=== PATIENT | male | born 1985 | race Caucasian/White ===

== ENCOUNTER 2021-08-02 12:22 | Emergency (ER) | payer BC, MEDICAID ==
[~2021-08-02] VITALS: Ht 177.8 cm; Wt 64.4 kg
--- NOTE | 2021-08-02 12:30 | NUR ---
SEEN AND EXAMINED BY DR ARMSTRONG
--- NOTE | 2021-08-02 12:30 | NUR ---
TO ER BED 13, [id number] HOME, WAS FOUND IN THE BATHROOM W/ SELF INFLICTED ABRASIONS ON LFA, [employer] WILL PLACE ON 5150 FOR DTS, PER EMS PT CALLED 911 BUT DID NO SPECIFICALLY REPORT SI, JUST DEPRESSED, AAOX3, BREATHING EVEN AND NON LABORED, CONNECTED TO MONITOR
[2021-08-02] MEDS ORDERED: TDAP [DIPH/PERTUSSIS/TET] 0.5 ML VIAL IM ONE ×2 (12:36→13:00)
--- NOTE | 2021-08-02 12:38 | NUR ---
APPLICATIONS SYSTEMS ANALYST AT BEDSIDE
--- NOTE | 2021-08-02 12:42 | NUR ---
SCOTTY AT BEDSIDE UNIT#[id number]
[2021-08-02] MEDS ORDERED: BUPR75TA8 PO (12:55)
[2021-08-02 13:04] LABS: CARBON DIOXIDE 30 mmol/L (21-32); CHLORIDE 102 mmol/L (98-107); CREATININE 0.9 mg/dL (0.6-1.3); GLUCOSE 121 mg/dL (74-106); POTASSIUM 3.5 mmol/L (3.5-5.1); SODIUM SERUM 136 mmol/L (136-145); UREA NITROGEN, BLOOD 11 mg/dL (7-18)
[2021-08-02 13:10] LABS: ALANINE AMINOTRANSFERASE 25 U/L (12-78); ALBUMIN 4.2 g/dL (3.4-5.0); ALCOHOL, BLOOD < 3 mg/dL (0-0); ALKALINE PHOSPHATASE 73 U/L (46-116); ASPARTATE AMINOTRANSFERASE 13 U/L (15-37); BASOPHILS # (AUTO) 0.1 K/uL (0.0-0.2); BASOPHILS % (AUTO) 0.9 % (0.0-2.0); BILIRUBIN,DIRECT 0.1 mg/dL (0.0-0.2); BILIRUBIN,TOTAL 0.5 mg/dL (0.2-1.0); EOSINOPHILS % (AUTO) 0.7 % (0.0-6.0); HEMATOCRIT 43 % (39-51); HEMOGLOBIN 14.8 g/dL (13.5-17.5); LYMPHOCYTES # (AUTO) 1.9 K/uL (0.8-4.8); LYMPHOCYTES % (AUTO) 26.2 % (20.0-44.0); MEAN CORPUSCULAR HGB CONC 35 g/dl (31.0-36.0); MEAN CORPUSCULAR VOLUME 91 fL (80-96); MONOCYTES # (AUTO) 0.4 K/uL (0.1-1.30); MONOCYTES % (AUTO) 5.7 % (2.0-12.0); NEUTROPHILS # (AUTO) 4.8 K/uL (1.8-8.9); NEUTROPHILS % (AUTO) 66.5 % (43.0-81.0); PLATELET COUNT (AUTO) 287 K/uL (150-450); RED BLOOD CELL COUNT(AUTO) 4.67 MIL/uL (4.5-6.0); TOTAL PROTEIN, SERUM 7.3 g/dL (6.4-8.2); WHITE BLOOD COUNT (AUTO) 7.2 K/uL (4.3-11.0)
[2021-08-02 13:11] LABS: ACETAMINOPHEN 0 ug/ml (10-30)
--- NOTE | 2021-08-02 13:13 | NUR ---
SEEN BY BISI RYAN
--- NOTE | 2021-08-02 13:50 | NUR ---
SS Consult: SS consult for suicidal. Pt. Is a 35-year-old male. Pt. demonstrates adequate insight to the reason for hospitalization. Per pt., he was brought to hospital by [employer] placed on a hold due to hurting self. Pt. was oriented x3, alert, and cooperative. During interview, pt. was capable of following directions, made appropriate eye-contact, and appeared groomed. Pt.'s speech was at a normal rate. Pt.'s mood was depressed. SW explored pt.'s hx of mental health and substance abuse. Pt. reported no hx of mental health, substance abuse, or homicidal ideation. Pt. stated that he has been suicidal for couple days. Pt. attempted to cut himself on the arm. Pt. denies auditory hallucinations, visual hallucinations, paranoia, or delusions. SW explored pt.'s living situation. Per pt., he lives with a roommate [[id number]. [address] [place] [id number]]. SW explored pt.'s financial status. Per pt., he currently works in production. Pt. stated that he sees a therapist once a week [Sunita Renee, no number provided]. Plan: Pt. expressed that he wants to go to psych. Hospital. Once pt. is medically cleared, SW will fax clinicals to psych. Hospitals. Pt. rejects resources at this time.
[2021-08-02 14:47] LABS: BILIRUBIN,URINE NEGATIVE (NEGATIVE); COLOR,URINE YELLOW (YELLOW); LEUKOCYTE ESTERASE ,URINE NEGATIVE (NEGATIVE); NITRITE, URINE NEGATIVE (NEGATIVE); PROTEIN,URINE NEGATIVE (NEGATIVE); UGLUCOSE NEGATIVE (NEGATIVE)
[2021-08-02 15:00] LABS: BACTERIA,URINE None seen /HPF (None Seen); MUCUS,URINE Few /LPF (None Seen); RBC,URINE 0-2 /HPF (0-2); SQUAMOUS EPITHELIAL CELL,UR 0-2 /HPF (None Seen); WBC,URINE 0-2 /HPF (0-3)
--- NOTE | 2021-08-02 15:12 | NUR ---
Parents Percy and Esperanza [[phone]] Kassy [Pt.'s job: [phone]] Adwoa [Emergency Contact- friend [phone]] Therapist [Sunita Polo [phone]].
--- NOTE | 2021-08-02 15:15 | NUR ---
Faxed clinicals to [facility] [fax: [phone], tele: [phone]].
--- NOTE | 2021-08-02 15:50 | NUR ---
Jaqui from [place] [[phone]]
--- NOTE | 2021-08-02 17:12 | NUR ---
PAGED POULTRY KILLER AND WILL TRY TO FIND PLACEMENT FOR PT
[2021-08-03] MEDS ORDERED: LORAZEPAM 1 MG TABLET ONE (00:28)
[2021-08-03] MEDS ORDERED: LORAZEPAM 1 MG TABLET PO ONE (00:30)
--- NOTE | 2021-08-03 00:30 | NUR ---
HERNANDEZ AT BEDSIDE FOR EVAL.
[2021-08-03 06:10] VITALS: BP 127/67
--- NOTE | 2021-08-03 08:43 | NUR ---
CALLED HERNANDEZ, SOFTWARE PUBLISHER, AND WAS NOTIFIED TO FAX CLINICALS TO [facility] ([phone]), [facility] ([phone]), AND [facility] ARMSTRONG ([phone]). ALSO MENTIONED THAT IF PT IS NOT ABLE TO FIND PLACEMENT AFTER DISCHARGES, AT 1000 TO 1100, IN THOSE FACILITIES SHE WILL RE EVALUATE THE PT AND POSSIBLY BREAK THE HOLD.
--- NOTE | 2021-08-03 08:50 | NUR ---
THE PATIENT IS ACCEPTED TO [facility] [address] CHAVARRIA [address] [place] [address] REPORT GIVEN TO NURSE STEWARD
--- NOTE | 2021-08-03 08:50 | NUR ---
CALLED [facility] AND SET UP S TRANSPORT TO [facility] ETA 1030
--- NOTE | 2021-08-03 10:42 | NUR ---
REPORT GIVEN TO AMBULANCE STAFF. THE PATIENT IS TRANSFERED TO [facility] IN [facility] [place] VIA [facility] AMBULANCE.
== END 2021-08-03 10:45 ==
LOC: ER 12:26
DX: F39 Unspecified mood [affective] disorder (principal); S51.812A Laceration without foreign body of left forearm, initial encounter; X78.9XXA Intentional self-harm by unspecified sharp object, initial encounter; Y92.031 Bathroom in apartment as the place of occurrence of the external cause; F32.A Depression, unspecified; Z20.822 Contact with and (suspected) exposure to COVID-19
CPT/HCPCS: 36415; 80048; 80076; 80143; 80307; 80320; 81001; 85025; 87426; 90471; 90715; 99285; C9803; G0480